=== PATIENT | female | born 1970 | race Caucasian/White ===

== ENCOUNTER 2019-07-16 09:32 | Day surgery (SDC) | payer BC, OTHER ==
[2019-07-15 11:54] VITALS: BMI 25.7
[2019-07-16 10:15] VITALS: TEMP 97.9
[2019-07-16 13:39] VITALS: BP 102/58; PULSE 68
--- NOTE | 2019-07-17 15:53 | PATH ---
Surgical Pathology Report Patient Name: [facility]. Rec. #: [id number] /Age/Gender: 1970 (Age: 48) / F Account: [id number] Location: U-ENDOSCOPY Taken: 07/16/2019 Received: 07/16/2019 Reported: 07/17/2019 Physicians: Kaia Stevenson M.D. Specimen(s) Received A: DUODENUM B: ANTRUM GREATER CURVATURE C: ANTRUM LESSER CURVATURE D: ANGULARIS E: BODY GREATER CURVATURE F: BODY LESSER CURVATURE G: GASTRIC POLYPS Clinical History Pernicious anemia Postoperative diagnosis: Gastritis, gastric polyps Final Diagnosis A. DUODENUM, BIOPSY: DUODENAL MUCOSA WITH SMALL LYMPHOID AGGREGATE. B. STOMACH, ANTRUM, GREATER CURVATURE, BIOPSY: GASTRIC ANTRAL MUCOSA WITH MILD CHRONIC GASTRITIS AND REACTIVE CHANGES. IMMUNOHISTOCHEMICAL STAIN FOR H. PYLORI IS NEGATIVE. C. STOMACH, ANTRUM, LESSER CURVATURE, BIOPSY: GASTRIC ANTRAL MUCOSA WITH MILD CHRONIC GASTRITIS AND REACTIVE CHANGES. IMMUNOHISTOCHEMICAL STAIN FOR H. PYLORI IS NEGATIVE. D. STOMACH, ANGULARIS, BIOPSY: GASTRIC BODY MUCOSA WITH MODERATE CHRONIC GASTRITIS. IMMUNOHISTOCHEMICAL STAIN FOR H. PYLORI IS NEGATIVE. E. STOMACH, BODY, GREATER CURVATURE, BIOPSY: GASTRIC BODY MUCOSA WITH SEVERE CHRONIC GASTRITIS AND FOCAL INTESTINAL METAPLASIA. NO DYSPLASIA IDENTIFIED. IMMUNOHISTOCHEMICAL STAIN FOR H. PYLORI IS NEGATIVE. F. STOMACH, BODY, LESSER CURVATURE, BIOPSY: GASTRIC BODY MUCOSA WITH SEVERE CHRONIC GASTRITIS AND FOCAL INTESTINAL METAPLASIA. NO DYSPLASIA IDENTIFIED. IMMUNOHISTOCHEMICAL STAIN FOR H. PYLORI IS NEGATIVE. G. GASTRIC POLYPS, BIOPSY: POLYPOID GASTRIC MUCOSA WITH MODERATE CHRONIC GASTRITIS, MILD FOVEOLAR HYPERPLASIA, AND RARE DILATED GLANDS. IMMUNOHISTOCHEMICAL STAIN FOR H. PYLORI IS NEGATIVE. Positive and negative controls (internal if applicable) show appropriate results. Electronically Signed Eulalia Campbell M.D. Gross Description A. Received in formalin, labeled "duodenum biopsy" are 4 mosley, irregular portions of soft tissue ranging from 0.2-0.3 cm. in greatest dimension. The specimens are submitted in toto in one cassette. B. Received in formalin, labeled "antrum greater curvature biopsy" are 2 mosley, irregular portions of soft tissue averaging 0.4 cm. in greatest dimension. The specimens are submitted in toto in one cassette. C. Received in formalin, labeled "antrum lesser curvature biopsy" are 2 mosley, irregular portions of soft tissue averaging 0.3 cm. in greatest dimension. The specimens are submitted in toto in one cassette. D. Received in formalin, labeled "angularis biopsy" are 4 mosley, irregular portions of soft tissue ranging from 0.2-0.3 cm. in greatest dimension. The specimens are submitted in toto in one cassette. E. Received in formalin, labeled "body greater curvature biopsy" are 4 mosley, irregular portions of soft tissue ranging from 0.2-0.3 cm. in greatest dimension. The specimens are submitted in toto in one cassette. F. Received in formalin, labeled "body lesser curvature biopsy" are 4 mosley, irregular portions of soft tissue ranging from 0.2-0.3 cm. in greatest dimension. The specimens are submitted in toto in one cassette. G. Received in formalin, labeled "gastric polyp biopsy" are 2 mosley, irregular portions of soft tissue averaging 0.3 cm. in greatest dimension. The specimens are submitted in toto in one cassette. 07/16/2019 [facility]07/16/2019
== END 2019-07-16 13:00 | disposition home or self-care (01) ==
LOC: JASU-ENDO 09:32
PROVIDERS: ATTEND Internal Medicine Gastroenterology
PROC: 0DB68ZX Excision of Stomach, Via Natural or Artificial Opening Endoscopic, Diagnostic (ICD-10-PCS; principal; 2019-07-16 11:30)
DX: D51.0 Vitamin B12 deficiency anemia due to intrinsic factor deficiency (principal); K31.7 Polyp of stomach and duodenum; K29.70 Gastritis, unspecified, without bleeding